=== PATIENT | female | born 1950 | race Asian ===

== ENCOUNTER 2022-05-30 17:07 | Inpatient (IN) | payer OTHER, MEDICARE ==
[~2022-05-30] VITALS: Ht 152.4 cm; Wt 42.0 kg
[~2022-05-30 17:07] MED LIST: PLAQUENIL 200M200 MG PO
[2022-05-30 17:32] LABS: HEMATOCRIT 37.1 % (37.0-47.0); HEMOGLOBIN 12.6 g/dl (12.5-16.0); MEAN CELL VOLUME 95 fl (80.0-100.0); MEAN CORPUSCULAR HEMOGLOBIN 32 pg (27-31); MEAN CORPUSCULAR HGB CONC 34 g/dl (33.0-37.0); MEAN PLATELET VOLUME 9.6 fl (7.4-10.4); PLATELET COUNT 287 K/mm3 (130-400); RED BLOOD COUNT 3.92 M/mm3 (4.10-5.30); REDCELL DISTRIBUTION WIDTH-CV 14.4 % (11.5-14.5)
[2022-05-30 17:56] LABS: ALBUMIN 4.3 gm/dL (3.4-4.8); BILIRUBIN,TOTAL 0.5 mg/dL (0.2-1.2); CALCIUM 9.2 mg/dL (8.4-10.2); CREATININE, serum 0.72 mg/dL (0.57-1.11); POTASSIUM 3.4 mmol/L (3.5-4.5); TOTAL PROTEIN 7.7 gm/dL (6.2-8.1)
[2022-05-30 18:30] LABS: BAND 5 % (0-10); LYMPHOCYTE 45 % (20.0-51.0); METAMYELOCYTE 2 % (0-0); NEUTROPHILS 47 % (42.0-75.2); PLATELET ESTIMATE NORMAL (NORMAL)
[2022-05-30] MEDS ORDERED: OMEGA-3 1000 MG1 CAP PO (21:20)
[2022-05-30] MEDS ORDERED: RESTASIS0.05% OP (21:20)
[2022-05-31] VITALS (10 sets, daily range): BP systolic 96–104; BP diastolic 51–71; PULSE 64–73; TEMP 97.7–98.3
--- NOTE | 2022-05-31 00:13 | NUR ---
RECEIVED REPORT FROM ED RNTITO. WAITING ON PATIENT ARRIVAL TO FLOOR FOR ADMIT TO ROOM 324
--- NOTE | 2022-05-31 02:06 | NUR ---
PATIENT REPORTS HAS TENDERNESS TO LEFT POST CROWN, WITH NO OBSERVEABLE DISCOLORATION/BLEEDING WITH SKIN INTACT TO AREA OF COMPLAINT ON SCALP. DENIES NAUSEA, SPEECH REMAINS CLEAR AND APPROPRIATE AT THIS TIME.
--- NOTE | 2022-05-31 05:34 | NUR ---
DENIES URGE TO VOID AT THIS TIME. DENIES DISCOMFORT AT THIS TIME.
[2022-05-31 06:57] LABS: CALCIUM 8.6 mg/dL (8.4-10.2); CREATININE, serum 0.68 mg/dL (0.57-1.11); POTASSIUM 4.5 mmol/L (3.5-4.5)
[2022-05-31 07:07] LABS: BASO # 0.1 K/mm3 (0.0-0.2); BASO % 0.3 % (0.0-2.0); GRAN # 13.8 K/mm3 (1.4-6.5); HEMOGLOBIN 10.9 g/dl (12.5-16.0); LYMPH # 1.5 K/mm3 (1.2-3.4); MEAN CELL VOLUME 93 fl (80.0-100.0); MEAN CORPUSCULAR HEMOGLOBIN 32 pg (27-31); MEAN CORPUSCULAR HGB CONC 35 g/dl (33.0-37.0); MEAN PLATELET VOLUME 10.2 fl (7.4-10.4); MONO # 0.8 K/mm3 (0.1-0.6); PLATELET COUNT 238 K/mm3 (130-400); RED BLOOD COUNT 3.39 M/mm3 (4.10-5.30); REDCELL DISTRIBUTION WIDTH-CV 14.3 % (11.5-14.5)
[2022-05-31 07:14] LABS: HEMATOCRIT 31.5 % (37.0-47.0)
--- NOTE | 2022-05-31 07:27 | NUR ---
CHANGE OF SHIFT REPORT GIVEN TO DAY SHIFT RNCAMRON.
--- NOTE | 2022-05-31 11:25 | NUR ---
Initial visit: with her along with two friends. Patient unable to speak aloud but mouthed "thank-you'" for the visit and blessings to get well.
--- NOTE | 2022-05-31 11:44 | NUR ---
PT UP TO RECLINER FOR BREAKFAST. PO PAIN MEDS FOR PAIN CONTROL. PT IS A/O X4, ABLE TO AMBULATE TO BR WITH ASSIST X1. IV TO RFA.
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
[2022-05-31 17:06] LABS: PH 8.5 (5.0-8.5); URINE APPEARANCE Clear (CLEAR/HAZY); URINE BLOOD Negative (NEGATIVE); URINE COLOR Amber (YELLOW); URINE GLUCOSE Negative (NEGATIVE); URINE KETONE TRACE (NEGATIVE); URINE NITRATE Negative (NEGATIVE); URINE PROTEIN(semi-quant) 1+ (NEGATIVE); URINE UROBILINOGEN 0.2 E.U/dL (0.2-1.0)
[2022-05-31 17:08] LABS: COLLECTION METHOD CLEAN CATCH; MUCOUS Present (NOT PRESENT); SQUAMOUS EPITHELIAL 0-2 /hpf (0-10); URINE BACTERIA None Seen /hpf (NONE SEEN); URINE RBC 0-2 /hpf (0-2)
--- NOTE | 2022-05-31 20:30 | NUR ---
PT IN BED, HAS ASPEN COLLAR ON. IS ALERT AND ORIENTED X4. HAS SPLINT TO LT ARM, MOVES FINGERS WELL ON LEFT HAND. HAS INT TO RAC, FLUSHES WELL. REPORTS PAIN TO STERNUM WHEN TRYING TO SIT FORWARD OR RECLINE. TAKES HS MEDS WITHOUT PROBLEM.
[2022-06-01] VITALS (12 sets, daily range): BP systolic 94–115; BP diastolic 50–70; PULSE 60–78; TEMP 98–98.4
--- NOTE | 2022-06-01 05:51 | NUR ---
ASSISTED TO BR, GAIT UNSTEADY, USES CANE. VOIDS AND BACK TO BED. ASPEN COLLAR ON. HAS WORN SCDS THIS SHIFT.
[2022-06-01 06:14] LABS: HEMOGLOBIN 10.7 g/dl (12.5-16.0); MEAN CELL VOLUME 94 fl (80.0-100.0); MEAN CORPUSCULAR HEMOGLOBIN 32 pg (27-31); MEAN CORPUSCULAR HGB CONC 34 g/dl (33.0-37.0); MEAN PLATELET VOLUME 10.1 fl (7.4-10.4); PLATELET COUNT 236 K/mm3 (130-400); RED BLOOD COUNT 3.37 M/mm3 (4.10-5.30); REDCELL DISTRIBUTION WIDTH-CV 14.1 % (11.5-14.5)
[2022-06-01 06:15] LABS: HEMATOCRIT 31.6 % (37.0-47.0)
--- NOTE | 2022-06-01 09:29 | NUR ---
PT AAOX4 SITTING AT BEDSIDE. PT REQUESTING BANDAID FOR ABRASIONS ON HER KNEE AND RIGHT PALM. PT WALKED TO BATHROOM WITH CANE. NO FURTHER NEEDS AT THIS TIME.
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
--- NOTE | 2022-06-01 21:14 | NUR ---
2012-PT. CALLED TO SAY THAT HER IV WAS LEAKING, WHEN I LOOKED IT APPEARED TO BE BLEEDING FROM UNDER THE DRESSING, I PULLED THE DRESSING BACK AND FLUSHED IT IN ORDER TO SEE IF THE CONNECTION HAD COME LOOSE, WHEN FLUSHED IT LEAKED DIRECTLY FROM THE INSERTION SITE, AND PT. STATED THAT IT HURT WHEN FLUSHED, I WENT AHEAD AND REMOVED THE IV, CLEANED UP HER ARM, AND GOT A NEW IV STARTED, A 22G IN HER R) FOREARM.
[2022-06-02] VITALS (20 sets, daily range): BP systolic 92–130; BP diastolic 42–86; PULSE 61–93; TEMP 97.6–98.5
[2022-06-02 06:39] LABS: BASO # 0.1 K/mm3 (0.0-0.2); BASO % 0.7 % (0.0-2.0); EOS % 0.4 % (0.0-4.0); GRAN # 4.7 K/mm3 (1.4-6.5); GRAN % 67.2 % (42.2-75.2); HEMOGLOBIN 10.3 g/dl (12.5-16.0); LYMPH # 1.6 K/mm3 (1.2-3.4); LYMPH % 22.8 % (20.0-51.0); MEAN CELL VOLUME 95 fl (80.0-100.0); MEAN CORPUSCULAR HEMOGLOBIN 32 pg (27-31); MEAN CORPUSCULAR HGB CONC 33 g/dl (33.0-37.0); MONO # 0.6 K/mm3 (0.1-0.6); MONO % 8.8 % (1.7-9.3); PLATELET COUNT 233 K/mm3 (130-400); RED BLOOD COUNT 3.25 M/mm3 (4.10-5.30); REDCELL DISTRIBUTION WIDTH-CV 14.1 % (11.5-14.5)
[2022-06-02 06:42] LABS: HEMATOCRIT 30.9 % (37.0-47.0)
[2022-06-02 06:56] LABS: ALBUMIN 3.5 gm/dL (3.4-4.8); BILIRUBIN,TOTAL 0.8 mg/dL (0.2-1.2); CALCIUM 8.6 mg/dL (8.4-10.2); CREATININE, serum 0.61 mg/dL (0.57-1.11); POTASSIUM 4.2 mmol/L (3.5-4.5); TOTAL PROTEIN 6.4 gm/dL (6.2-8.1)
[2022-06-02 07:10] LABS: BILIRUBIN,DIRECT 0.3 mg/dL (0.0-0.5)
--- NOTE | 2022-06-02 07:52 | NUR ---
PT AAOX4. SITTING IN BED DURING ASSESSMENT. WALKING WITH PT NOW. NO FURTHER NEEDS AT THIS TIME. PT REMAINING NPO. IN THE ROOM.
--- NOTE | 2022-06-02 09:10 | NUR ---
PT UP AMBULATING THE HALLS THIS MORNING WITH THERAPY. PT IS A&O X4. PT STATED PRN PAIN MEDICATION FROM THIS MORNING HELPED WITH THE PAIN. DISCUSSED WITH PT THAT SURGERY IS PLANNED FOR AROUND 12OO THIS AFTERNOON.
--- NOTE | 2022-06-02 09:17 | NUR ---
PROTONIX GIVEN; PT IN BED; SCDs IN PLACE. NOT FURTHER NEEDS AT THIS TIME. SOCIAL WORK IN ROOM.
--- NOTE | 2022-06-02 11:54 | NUR ---
PT WENT DOWN FOR PROCEDURE AT THIS TIME.
--- NOTE | 2022-06-02 13:10 | NUR ---
Purification Director met with Patient and to discuss discharge planning. Patient reports wanting to discharge home with home health. SW provided Patient and with Medicare.gov list of home health providers servicing [place], [place]. Patient agreed to review list and select a servicing agency. Patient requests information for transportation to and from appointment post-discharge as her is not comftrable with driving after discharge. SW collaborated with Patient and to identify transportation resources :car insurance offer to reimburse transportation via [employer], self pay for [employer] transportation, supported transportation. Patient's reported to plan on speaking with his insurance this afternoon, stating he has the finances to pay for transportation up front with a reimbursment from insurance.
--- NOTE | 2022-06-02 15:59 | NUR ---
PT IS BACK IN THE ROOM AFTER PROCEDURE. A&O X4. PT STATED SHE IS NOT IN PAIN HER ARM JUST FEELS NUMB. PT STATED SHE IS COMFORTABE AND DID NOT WANT ANYTHING TO EAT OR DRINK WHEN OFFERED. PT STATED SHE JUST WANTED THE ICE CHIPS. POST OP VITALS STARTED. VITALS ON ARRIVAL ARE BP 114/63, O2 93% ON RA, HR 80, RR 15.
--- NOTE | 2022-06-02 21:24 | NUR ---
PT. STATES SHE IS NOT HAVING ANY PAIN RIGHT NOW, BUT THAT SHE NEEDED TO PEE, I ASSISTED PT. TO AND FROM THE BATHROOM, SHE IS AMBULATING WELL WITH STANDBY ASSIST, AND THE USE OF HER CANE, PUT PT.'S SCD'S BACK ON ONCE I HELPED HER SETTLE IN BED, PT. DENIES ANY FURTHER NEEDS, WILL CONTINUE TO MONITOR.
[2022-06-03] VITALS (10 sets, daily range): BP systolic 95–137; BP diastolic 57–85; PULSE 62–89; TEMP 98.1–98.5
[2022-06-03 06:50] LABS: CALCIUM 9.2 mg/dL (8.4-10.2); CREATININE, serum 0.7 mg/dL (0.57-1.11); POTASSIUM 4.3 mmol/L (3.5-4.5)
[2022-06-03 06:55] LABS: BASO % 0.2 % (0.0-2.0); GRAN # 9.6 K/mm3 (1.4-6.5); GRAN % 75.9 % (42.2-75.2); LYMPH % 15.6 % (20.0-51.0); MEAN CELL VOLUME 92 fl (80.0-100.0); MEAN CORPUSCULAR HEMOGLOBIN 32 pg (27-31); MEAN CORPUSCULAR HGB CONC 34 g/dl (33.0-37.0); MEAN PLATELET VOLUME 9.8 fl (7.4-10.4); MONO % 7.9 % (1.7-9.3); PLATELET COUNT 267 K/mm3 (130-400); RED BLOOD COUNT 3.49 M/mm3 (4.10-5.30); REDCELL DISTRIBUTION WIDTH-CV 14.2 % (11.5-14.5)
[2022-06-03 06:56] LABS: HEMATOCRIT 32.2 % (37.0-47.0)
[2022-06-03] MEDS ORDERED: ZOFRAN ODT4 MG PO (08:26)
[2022-06-03] MEDS ORDERED: NORCO 325 MG-51 TAB PO (08:26)
--- NOTE | 2022-06-03 08:55 | NUR ---
pt sitting on side of bed eating breakfast with . meds given and assessment complete. splint cdi and sling in place to left arm. c collar on. pt denies pain. INT to right forearm. fall precautions in place. no needs at this time. call light in reach.
--- NOTE | 2022-06-03 12:53 | NUR ---
Stator Plate Washer followed up with PAtient on the selection of a home health agency. Patient reports to want to recieve services from [facility]. AYSHA sent referral to [facility] and contacted wardrobe coordinator Semaj to notify of the referral. Patient was accepted by [facility] . James VIVI rep Semaj reports to intend to contact Patient to set up initial appointment. AYSHA collaborated with NATHALIA Hodgson to discuss transportation home as well as follow-up appointment in [place]. Patient reports that friends will transport them home at 1900 on this day. Additional transportation for appointments was coordinated through [facility] where Patient and attend. Pastor Gonzalez reports the intent to coordinate transportation for medical appointments for Patient and once discharged. P:[phone].
--- NOTE | 2022-06-03 17:09 | NUR ---
discharge instructions given to pt and . all questions answered. pt waiting for ride to arrive at approx 1900
--- NOTE | 2022-06-03 18:11 | NUR ---
ride her for pt. escorted via wheelchair to personal vehicle
== END 2022-06-03 18:13 | disposition home health service (06) | DRG 511 ==
LOC: COL.ER 17:07 → SURG 20:21
PROVIDERS: Internal Medicine; Nurse Practitioner; Orthopaedic Surgery; Physician Assistant; Student in an Organized Health Care Education/Training Program; ADMIT Surgery
PROC: 2W39X1Z Immobilization of Left Upper Extremity using Splint (ICD-10-PCS; 2022-05-31)
PROC: 0PSL04Z Reposition Left Ulna with Internal Fixation Device, Open Approach (ICD-10-PCS; principal; 2022-06-02 12:00)
DX: S52.002A Unspecified fracture of upper end of left ulna, initial encounter for closed fracture (principal); S12.501A Unspecified nondisplaced fracture of sixth cervical vertebra, initial encounter for closed fracture; S22.20XA Unspecified fracture of sternum, initial encounter for closed fracture; S22.32XA Fracture of one rib, left side, initial encounter for closed fracture; S22.31XA Fracture of one rib, right side, initial encounter for closed fracture; S12.601A Unspecified nondisplaced fracture of seventh cervical vertebra, initial encounter for closed fracture; K59.00 Constipation, unspecified; M06.9 Rheumatoid arthritis, unspecified; D72.829 Elevated white blood cell count, unspecified; E87.6 Hypokalemia; R73.03 Prediabetes; S80.02XA Contusion of left knee, initial encounter; M81.0 Age-related osteoporosis without current pathological fracture; Z90.411 Acquired partial absence of pancreas; Y93.89 Activity, other specified; Y92.488 Other paved roadways as the place of occurrence of the external cause; V43.52XA Car driver injured in collision with other type car in traffic accident, initial encounter; Z88.8 Allergy status to other drugs, medicaments and biological substances; Z87.891 Personal history of nicotine dependence; Z23 Encounter for immunization
CPT/HCPCS: A9284; C1713; J0690; J0696; J1100; J2250; J2270; J2405; J2704; J2795; J3010; J7120; Q9967